=== PATIENT | female | born 1965 | race African-American/Black ===

== ENCOUNTER → 2016-12-22 | Day surgery (SDC) | payer BC ==
[~2016-12-22] MED LIST: ASPIRIN EC81 M1 PO; BIOTIN PO; CALCIUM PO; DICLOFENAC PO; DIOVAN PO; FLEXERIL10 MG PO; MULTI VITAMIN1 EACH PO; POTASSIUM CHLO10 MEQ; POTASSIUM CHLO20 ME1 PO
--- NOTE | ~2016-12-22 | OR ---
Unit #: [id number] #: [id number] Patient: ANA BOUCHER [id number] [address] [place], [place] [address] [id number] O MR#: [id number] NAME: ANA BOUCHER ROOM: Date of Procedure: 12/22/2016 Admission Date: 12/22/2016 Surgeon: Andrew Velazquez M.D. : 1965 Attending Physician: Andrew Velazquez M.D. Primary Care Physician: Claude Grove OPERATIVE REPORT PREOPERATIVE DIAGNOSES Colorectal cancer screening. The patient has family history of colon polyps in her father. PROCEDURE PERFORMED Colonoscopy up to cecum with excellent preparation and good visualization. POSTOPERATIVE DIAGNOSES Mild sigmoid and descending colon diverticulosis. Otherwise, normal examination up to cecum. The quality of the prep was excellent. RECOMMENDATIONS Repeat colonoscopy in 5 years. SEDATION USED MAC. DESCRIPTION OF PROCEDURE Following detailed explanation of potential risks and complications of a colonoscopy, namely perforation, bleeding, and complications related to sedation, the patient was brought to GI lab and laid in the left lateral decubitus position. A digital rectal examination was performed, which was normal. Lubricated tip of the Olympus video colonoscope was inserted through the anus and advanced under direct vision. The scope was advanced and passed up to sigmoid into descending colon. Multiple small diverticula were noted in this area. The scope tip was then navigated all the way up to cecum with visualization of the ileocecal valve and the appendiceal orifice. Preparation was excellent with good visualization and photodocumentation was obtained. Successive segments of the colonic mucosa were examined upon withdrawal and appeared unremarkable. There being no polyps, mass lesions, or AVMs. Other than the scant left-sided diverticula, no other abnormalities noted. The patient did not have any hemorrhoids at anal verge. The scope was then withdrawn. The patient returned to the recovery area. She tolerated the procedure without any postprocedure complications. Dictated by... Jacinto Moyer/hamilton Unit #: [id number] #: [id number] Patient: ANA BOUCHER TD: 12/22/2016 22:48 JOB #: [id number] CC: Claude Cruz M.D. OPERATIVE REPORT Page 1 of 1 X Andrew Velazquez MD PROCEDURE OPERATIVE NOTE
== END | disposition home or self-care (01) ==
LOC: COPS 12:43
DX: Z12.11 Encounter for screening for malignant neoplasm of colon (principal); Z83.71 Family history of colonic polyps; K57.30 Diverticulosis of large intestine without perforation or abscess without bleeding; K21.9 Gastro-esophageal reflux disease without esophagitis; Z79.82 Long term (current) use of aspirin
CPT/HCPCS: 84703; J2250